=== PATIENT | male | born 1990 | race Caucasian/White ===

== ENCOUNTER 2023-12-11 09:34 | Outpatient (AMB) | payer BC, SELFPAY ==
[2023-12-11 09:40] VITALS: BP 124/74; PULSE 74; O2SAT 97; BMI 25.1
--- NOTE | 2023-12-11 09:40 | MHC.PC.OV ---
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 Now cannot pass air through L side. PMHx: Neurofibrmatosis Type I. SurgHx: L Testicular Surgery. FHx: Mom: Anxiety. Dad: HTN, HLD, DM. GM Breast CA SocHx: Nonsmoker. Socially on weekends up to 4 drinks. MJ edible each night, No other drugs HPI Comments History of Present Illness Details Documentation assistance for Rj Pal MD, was provided by Deuce Jeffers, [employer] D[employer]ing Vat Tender on 12/11/2023 10:22 AM EST. Narvaez, Dr. Pal, have read, observed, and verified documentation. FOR[facility]LY [facility] Medical History (Updated 12/11/23 @ 10:22 by Deuce Jeffers) Neurofibromatosis, type 1 Surgical History (Updated 12/11/23 @ 09:49 by Myrna Darnell CMA) History of testicular surgery Family History (Updated 12/11/23 @ 09:52 by Myrna Darnell CMA) Mother Anxiety Father High blood pressure High cholesterol Diabetes Social History (Updated 12/11/23 @ 09:56 by Myrna Darnell CMA) Household Members: Family Household Members Other:: younger brother Both parents involved: No Caregiver staying overnight: No Housing: House Are you a primary healthcare network pricing consultant to a significant other at home: No Do you presently have visiting nurse or other home services: No 75 years or older and lives alone: No Alcohol intake: current Comment: socially Patient Tobacco Use Status: Never used Tobacco e-Cigarette/Vaping Use: Never Used Agree to transfusion: Yes service: No Current occupational status: employed 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 Cognitive needs: No Hearing needs: No Vision needs: Yes (contacts, glasses) Questionnaire PHQ-9 Over the last 2 weeks, how often have you been bothered by any of the following problems? 1. Little interest or pleasure in doing things: not at all 2. Feeling down, depressed, or hopeless: not at all 3. Trouble falling or staying asleep, or sleeping too much: nearly every day 4. Feeling tired or having little energy: nearly every day 5. Poor appetite or overeating: not at all 6. Feeling bad about yourself - or that you are a failure or have let yourself or your family down: not at all 7. Trouble concentrating on things, such as reading the newspaper or watching television: not at all 8. Moving or speaking so slowly that other people could have noticed. Or the opposite - being so fidgety or restless that you have been moving around a lot more than usual: not at all 9. Thoughts that you would be better off or of hurting yourself in some way: not at all Total score: 6 Depression Screening Interpretation: Positive Depression Screening Done: Yes 99879 - PHQ-9 Billing: Yes Source: Developed by Drs. Tacho Wells, Eugenie Moffett, Larry Liu and colleagues, with an educational joshua from [email or web address]. Thrive Questionnaire Date Thrive assessed: 12/11/23 I am a: Patient What is your living situation today?: I have a steady place to live Within the past 12 months, did the food you bought not last and you didn't have the money to get more?: Never true Within the past 12 months, did you worry whether your food would run out before you got money to buy more?: Never true Do you have trouble paying for medicines?: No Do you have trouble getting transportation to medical appointments?: No Do you have trouble paying your heating and electricity bill?: No Do you have trouble taking care of your child, family member or friend?: No Do you have trouble with day-to-day activities such as bathing, preparing meals, shopping, managing finances, etc.?: No Are you currently unemployed and looking for a job?: No Are you interested in more education?: No THRIVE Score: 0 AUDIT C Alcohol Use Questionnaire (AUDIT-C) 1. How often do you have a drink containing alcohol?: 2-3 times a week 2. How many drinks containing alcohol do you have on a typical day when you are drinking?: 3 or 4 3. How often do you have six or more drinks on one occasion?: Less than monthly Total Score: 5 DAVID-7 AMB Questionnaire DAVID-7 Date DAVID - 7 assessed: 12/11/23 Feeling nervous, anxious, or on edge: 1 = Several days Not being able to stop or control worryin = Not at all Worrying too much about different things: 0 = Not at all Trouble relaxin = Nearly every day Being so restless that it is hard to sit still: 0 = Not at all Becoming easily annoyed or irritable: 1 = Several days Feeling afraid as if something awful might happen: 0 = Not at all Total DAVID-7 score (0-4 normal; 5-9 mild; 10-14 moderate; 15-21 severe): 5 Source: Developed by Drs. Tacho Wells, Eugenie Moffett, Larry Liu and colleagues, with an educational joshua from [email or web address]. DAVID-7 Assessment Billing DAVID-7 Assessment Tool: DAVID-7 Assessment 90583 Review of Systems Const Denies chills, Denies fatigue, Denies fever(s), Denies headache(s) and Denies weakness ENT Denies dizziness and Denies headache(s) Card Denies chest pain, Denies lightheadedness, Denies dyspnea and Denies other (Palpitations) Resp Denies cough, Denies dyspnea, Denies wheezing and Denies other ( shortness of breath) Musc Denies numbness and Denies tingling Neuro Denies dizziness, Denies headache(s), Denies numbness, Denies tingling, Denies paresthesias and Denies weakness Psych Denies anxiety and Denies depression Endo Denies fatigue Aller/Immun Denies wheezing Physical exam (Primary Care) Vital Signs: Last Vital Signs Pulse 74 12/11/23 09:40 BP 124/74 12/11/23 09:40 Pulse Ox 97 12/11/23 09:40 Oxygen Delivery Method Room Air 12/11/23 09:40 BMI result Body Mass Index 25.1 Tobacco/Smoking Status: Tobacco use Status Tobacco use date assessed 12/11/23 12/11/23 10:04 Patient Tobacco Use Status Never used Tobacco 12/11/23 10:04 e-Cigarette/Vaping Use Never Used 12/11/23 10:04 PHQ-9: PHQ-9 Score PHQ-9: Total score 6 12/11/23 10:04 Depression Screening Interpretation: Positive Thrive Assessment: Date of Thrive Assessment Date Thrive assessed 12/11/23 12/11/23 10:04 Const General: no acute distress and well developed Nutritional Appearance: well nourished Orientation/consciousness: patient oriented x3 HENMT Head: Yes normocephalic and Yes atraumatic Eyes General: appearance normal, both eyes and all related structures Pupils: Equal, round and reactive pupils present EOM: EOMs intact bilaterally Resp Effort & Inspection: normal respiratory effort Auscultation: clear to auscultation bilaterally Cardio Rate: regular rate Rhythm: regular rhythm Heart sounds: S1 normal heart sound present, S2 normal heart sound present, no gallops, no murmurs and no rubs Neuro General: patient oriented x3 and gait normal Cranial nerves: Yes Equal, round and reactive pupils present Psych Affect: normal affect Assessment and Plan Assessment & Plan (1) Neurofibromatosis, type 1: Code(s): Q85.01 - Neurofibromatosis, type 1 Plan: Stable Currently?has?no?neurologist?and?we?can?discuss?this?at?his?next?visit. (2) Deviated nasal septum: Code(s): J34.2 - Deviated nasal septum Plan: Deviated?nasal?septum?with?minimal?patency?of?left?Nare (3) Screening for STD (sexually transmitted disease): Code(s): Z11.3 - Encounter for screening for infections with a predominantly sexual mode of transmission Plan: Asymptomatic?Check?labs. (4) Laboratory exam ordered as part of routine general medical examination: Code(s): Z00.00 - Encounter for general adult medical examination without abnormal findings Plan: Check?lab Orders: Orders Comprehensive [place]. Panel Fast Today Z00.00 - Encounter for general adult medical examination without abnormal findings Lipid Panel Today Z00.00 - Encounter for general adult medical examination without abnormal findings Microalbumin, Random (w Creat) Today I10 - Essential (primary) hypertension UA and rflx microscopic Today Z00.00 - Encounter for general adult medical examination without abnormal findings HIV Ab/Ag Today Z11.3 - Encounter for screening for infections with a predominantly sexual mode of transmission CT NG by PCR Today Z11.3 - Encounter for screening for infections with a predominantly sexual mode of transmission TSH reflex Free T4 Today Z00.00 - Encounter for general adult medical examination without abnormal findings Syphilis Screen Today Z11.3 - Encounter for screening for infections with a predominantly sexual mode of transmission Hepatitis B,C Profile Today Z11.3 - Encounter for screening for infections with a predominantly sexual mode of transmission Referrals Ear/Nose/Throat Referral J34.2 - Deviated nasal septum Coding Level of Care Code New Pt Level 3 (63082) Diagnoses Neurofibromatosis, type 1 Q85.01 Deviated nasal septum J34.2 Screening for STD (sexually transmitted disease) Z11.3 Laboratory exam ordered as part of routine general medical examination Z00.00 Additional Codes DAVID-7 Assessment Billing - DAVID-7 Assessment Tool: DAVID-7 Assessment 52143 ([id number])
== END 2023-12-11 11:19 | disposition home or self-care (01) ==
PROVIDERS: PCP Family Medicine; Visit Provider Family Medicine
DX: Q85.01 Neurofibromatosis, type 1 (principal); J34.2 Deviated nasal septum; Z11.3 Encounter for screening for infections with a predominantly sexual mode of transmission; Z00.00 Encounter for general adult medical examination without abnormal findings
CPT/HCPCS: 99203

== ENCOUNTER 2023-12-11 10:38 | Outpatient (REF) | payer BC, SELFPAY ==
[2023-12-11 14:55] LABS: Appearance Urine Clear; Color Urine Yellow; Glucose Urine UA Negative (Negative); Leukocyte Esterase Urine Negative (Negative); Nitrite Urine Negative (Negative); PH 5.5 (5.0-9.0); Urine Blood Negative (Negative); Urine Ketones Negative (Negative); Urine Protein Negative (Neg-Trace)
[2023-12-11 17:05] LABS: Alanine Aminotransferase 94 U/L (0-40); Albumin Level 4.5 g/dL (3.5-5.0); Alkaline Phosphatase 63 U/L (39-117); Anion Gap 12 (12-20); Aspartate Amino Transferase 35 U/L (5-37); Bilirubin Total 0.8 mg/dL (0.0-1.0); Blood Urea Nitrogen 18 mg/dL (9-16); Calcium 9.5 mg/dL (8.4-10.2); Carbon Dioxide 26 mmol/L (22-29); Chloride 105 mmol/L (96-108); Cholesterol 226 mg/dL (<200); Estimated Glomerular Filt Rate > 60; Glucose Fasting 88 mg/dL (60-99); HDL Cholesterol 52 mg/dL (>40); LDL Cholesterol Calculated 141 mg/dL (<100); Potassium 3.9 mmol/L (3.3-5.1); Sodium 139 mmol/L (135-145); Total Protein 7.4 g/dL (6.5-8.0); Triglycerides 166 mg/dL (<150)
[2023-12-11 17:15] LABS: Creatinine Urine 123.07 mg/dL; Microalbum/Creatinine Ratio Ur 4.8 ug/mg cr (<30)
[2023-12-11 17:23] LABS: TSH reflex Free T4 3.75 uIU/mL (0.32-4.0)
[2023-12-12 05:04] LABS: Syphilis Screen Nonreactive (Nonreactive)
[2023-12-12 05:25] LABS: HBS Num1 4.04 mIU/mL (0-7.99); HBc Num1 0.07 S/CO (0.00-0.79); HBsAGNum1 0.54 S/CO (0.00-0.99); HIV AB/AG Nonreactive (Nonreactive); HIV Num 1 0.06 S/CO (0.00-0.99); Hepatitis B Core Antibody Nonreactive (Nonreactive); Hepatitis B Surface Antigen Negative (Negative); ~HepC Num1 0.05 S/CO (0.00-0.79); ~Hepatitis B Surface Antibody NONREACTIVE (Nonreactive); ~Hepatitis C Antibody Nonreactive (Nonreactive)
== END 2023-12-11 10:39 | disposition home or self-care (01) ==
LOC: HO.WFDLDS 10:38
PROVIDERS: Visit Provider Family Medicine
DX: Z00.00 Encounter for general adult medical examination without abnormal findings (principal); I10 Essential (primary) hypertension; Z11.3 Encounter for screening for infections with a predominantly sexual mode of transmission
CPT/HCPCS: 36415; 80053; 80061; 81003; 82043; 82570; 84443; 86704; 86706; 86780; 86803; 87340; 87389

== ENCOUNTER 2024-03-04 10:21 | Outpatient (AMB) | payer BC, SELFPAY ==
[2024-03-04 10:26] VITALS: BP 126/64; PULSE 77; RESP 15; TEMP 36.1; O2SAT 97; BMI 25.1
--- NOTE | 2024-03-04 10:26 | A.OFFPC_ITS ---
Vital Signs 03/04/24 10:26 Height 5 ft 4 in Weight 146 lb 6 oz BMI 25.1 BP 126/64 Blood Pressure Location Rt brachial Position Sitting Respiration 15 Pulse 77 Pulse Source Pulse Oximeter Temp 97 F Temp Source Temporal Artery Scan Pulse Oximetry (%) 97 Oxygen Delivery Method Room Air Intake Visit Reasons: CPE with f/u labs and health maint. Intake Note: Patient states he does not have any concerns at the moment. 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 HPI Details 34 y/o male presents for a CPE with f/u labs. Labs were drawn 12/11/23. Reviewed labs with pt. Elevated ALT of 94. Triglycerides 166. TC 226. LDL 141. HDL 52. TSH level 3.75. He notes ENT has not contacted him yet for his deviated nasal septum. PENDING SALE TO [facility] Medical History (Updated 03/04/24 @ 10:42 by Deuce Jeffers) Neurofibromatosis, type 1 Surgical History (Updated 12/11/23 @ 09:49 by Myrna Darnell CMA) History of testicular surgery Family History (Updated 12/11/23 @ 09:52 by Myrna Darnell CMA) Mother Anxiety Father High blood pressure High cholesterol Diabetes Social History (Updated 12/11/23 @ 09:56 by Myrna Darnell CMA) Household Members: Family Household Members Other:: younger brother Both parents involved: No Caregiver staying overnight: No Housing: House Are you a primary healthcare advisory services manager to a significant other at home: No Do you presently have visiting nurse or other home services: No 75 years or older and lives alone: No Alcohol intake: current Comment: socially Patient Tobacco Use Status: Never used Tobacco e-Cigarette/Vaping Use: Never Used Agree to transfusion: Yes service: No Current occupational status: employed 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 Cognitive needs: No Hearing needs: No Vision needs: Yes (contacts, glasses) Questionnaire PHQ-9 Over the last 2 weeks, how often have you been bothered by any of the following problems? 1. Little interest or pleasure in doing things: not at all 2. Feeling down, depressed, or hopeless: not at all 3. Trouble falling or staying asleep, or sleeping too much: nearly every day 4. Feeling tired or having little energy: nearly every day 5. Poor appetite or overeating: not at all 6. Feeling bad about yourself - or that you are a failure or have let yourself or your family down: not at all 7. Trouble concentrating on things, such as reading the newspaper or watching television: not at all 8. Moving or speaking so slowly that other people could have noticed. Or the opposite - being so fidgety or restless that you have been moving around a lot more than usual: not at all 9. Thoughts that you would be better off or of hurting yourself in some way: not at all Total score: 6 Depression Screening Interpretation: Positive Depression Screening Done: Yes 98903 - PHQ-9 Billing: Yes Source: Developed by Drs. Tacho Wells, Eugenie Moffett, Larry Liu and colleagues, with an educational joshua from [employer]. Thrive Questionnaire Date Thrive assessed: 03/04/24 I am a: Patient What is your living situation today?: I have a steady place to live Within the past 12 months, did the food you bought not last and you didn't have the money to get more?: Never true Within the past 12 months, did you worry whether your food would run out before you got money to buy more?: Never true Do you have trouble paying for medicines?: No Do you have trouble getting transportation to medical appointments?: No Do you have trouble paying your heating and electricity bill?: No Do you have trouble taking care of your child, family member or friend?: No Do you have trouble with day-to-day activities such as bathing, preparing meals, shopping, managing finances, etc.?: No Are you currently unemployed and looking for a job?: No Are you interested in more education?: No Please select the resources that you would like help with: None Currently or been in a relationship where the following occur: No concerns reported THRIVE Score: 0 AUDIT C Alcohol Use Questionnaire (AUDIT-C) 1. How often do you have a drink containing alcohol?: 2-4 times a month 2. How many drinks containing alcohol do you have on a typical day when you are drinking?: 1 or 2 3. How often do you have six or more drinks on one occasion?: Never Total Score: 2 DAVID-7 AMB Questionnaire DAVID-7 Date DAVID - 7 assessed: 12/11/23 Feeling nervous, anxious, or on edge: 1 = Several days Not being able to stop or control worryin = Not at all Worrying too much about different things: 0 = Not at all Trouble relaxin = Nearly every day Being so restless that it is hard to sit still: 0 = Not at all Becoming easily annoyed or irritable: 1 = Several days Feeling afraid as if something awful might happen: 0 = Not at all Total DAVID-7 score (0-4 normal; 5-9 mild; 10-14 moderate; 15-21 severe): 5 Source: Developed by Drs. Tacho Wells, Eugenie Moffett, Larry Liu and colleagues, with an educational joshua from [employer]. DAVID-7 Assessment Billing DAVID-7 Assessment Tool: DAVID-7 Assessment 07985 Review of Systems Const Denies chills, Denies fatigue, Denies fever(s), Denies headache(s) and Denies weakness Eyes Denies change in vision ENT Denies dizziness and Denies headache(s) Card Denies dyspnea Resp Denies cough, Denies dyspnea, Denies wheezing and Denies other (shortness of breath) GI Denies abdominal pain, Denies melena, Denies hematochezia, Denies change in bowel habits, Denies dyspepsia and Denies nausea Denies hematuria and Denies dysuria Musc Denies numbness and Denies tingling Skin/Breast Denies rash, Denies unusual bruising and Denies wounds Neuro Denies dizziness, Denies headache(s), Denies numbness, Denies Sensory deficit (Neuro), Denies tingling and Denies weakness Psych Denies anxiety and Denies depression Endo Denies fatigue Dayday/Lymph Denies easy bleeding and Denies easy bruising Aller/Immun Denies wheezing Physical exam (Primary Care) Vital Signs: Last Vital Signs Temp 97 F 03/04/24 10:26 Pulse 77 03/04/24 10:26 Resp 15 03/04/24 10:26 BP 126/64 03/04/24 10:26 Pulse Ox 97 03/04/24 10:26 Oxygen Delivery Method Room Air 03/04/24 10:26 BMI result Body Mass Index 25.1 Tobacco/Smoking Status: Tobacco use Status Tobacco use date assessed 03/04/24 03/04/24 10:33 Patient Tobacco Use Status Never used Tobacco 03/04/24 10:29 e-Cigarette/Vaping Use Never Used 03/04/24 10:29 PHQ-9: PHQ-9 Score PHQ-9: Total score 6 03/04/24 10:33 Depression Screening Interpretation: Positive Thrive Assessment: Date of Thrive Assessment Date Thrive assessed 03/04/24 03/04/24 10:33 Currently or been in a relationship where the following occur: No concerns reported Const General: well developed; No acute distress Nutritional Appearance: well nourished Orientation/consciousness: patient oriented x3 HENMT Head: Yes normocephalic and Yes atraumatic Ears: hearing grossly normal bilaterally and TM's normal bilaterally General nose exam: Normal external nose present and Normal nares present Mouth: Normal oral and palatal mucosa present and moist mucous membranes Teeth and gingiva: dentition normal Throat: Yes posterior oropharynx normal Eyes General: appearance normal, both eyes and all related structures Pupils: Equal, round and reactive pupils present EOM: EOMs intact bilaterally Neck Neck: Yes normal visual inspection, Yes no lymphadenopathy and Yes trachea midline Thyroid: Thyroid normal Carotids: no bruits Lymphatic: no lymphadenopathy noted Chest Chest palpation & inspection: normal inspection of the chest Resp Effort & Inspection: normal respiratory effort Auscultation: clear to auscultation bilaterally Cardio Rate: regular rate Rhythm: regular rhythm Heart sounds: S1 normal heart sound present, S2 normal heart sound present, no gallops, no murmurs and no rubs Bruits: no abdominal aortic bruits and no carotid bruits GI Palpation (GI): No Abdominal aortic bruit present, Soft to palpation, nontender, No hepatosplenomegaly present and No Rebound tenderness present Auscultation: normal bowel sounds General: Yes no CVA tenderness Back/Spine/Pelvis Back: no CVA tenderness Cervical Spine: cervical ROM normal and No Cervical spine tenderness Thoracic/Lumbar Spine: thoraco-lumbar ROM normal, No pain with thoraco-lumbar ROM, No thoracic spinal tenderness and No lumbar spinal tenderness Skin Lesions: no lesions Rashes: no rashes Trauma: no lacerations or abrasions Wounds: no wounds Nails: normal Neuro General: patient oriented x3 and gait normal Cranial nerves: Yes Equal, round and reactive pupils present Cognition (Neuro): normal cognition Gait exam (Neuro): Normal gait present Motor exam (neuro): 5/5 motor strength present throughout Sensory Exam: No Sensory deficit (Neuro) Deep tendon reflexes (DTR's): Right patellar reflex intensity grade: 2+ and Left patellar reflex intensity grade: 2+ Extrem General: Yes normal to inspection and No edema Psych Appearance: grossly normal Affect: normal affect Attitude: cooperative Thought process: Normal thought process present Assessment and Plan Assessment & Plan (1) Adult general medical exam: Code(s): Z00.00 - Encounter for general adult medical examination without abnormal findings Plan: 34-year-old?male?presents?for?complete?physical?exam (2) Neurofibromatosis, type 1: Code(s): Q85.01 - Neurofibromatosis, type 1 Plan: Stable.??Patient?does?not?have?a?neurologist?however?and?would?like?a?referral Referred?to?neurology (3) Hyperlipidemia: Code(s): E78.5 - Hyperlipidemia, unspecified Plan: TC,?LDL?cholesterol?and?triglycerides?are?high. Encouraged?a?diet?lower?in?saturated?fats?and?cholesterol Will?recheck?at?next?visit (4) Elevated liver enzymes: Code(s): R74.8 - Abnormal levels of other serum enzymes Plan: Elevated?ALT Occasionally?uses?Tylenol.??Occasionally?uses?alcohol?but?denies?any?significant ?alcohol?use. Encouraged?good?hydration Avoid?any?Tylenol?or?alcohol?prior?to?next?blood?draw If?liver?enzymes?are?the?same?or?higher,?will?check?an?ultrasound (5) Deviated nasal septum: Code(s): J34.2 - Deviated nasal septum Plan: Had?referred?patient?to?ENT?but?he?has?not?been?contacted?yet.??I?have?asked?the ?office?to?help?get?him?an?appointment (6) GERD (gastroesophageal reflux disease): Code(s): K21.9 - Gastro-esophageal reflux disease without esophagitis Plan: GERD?symptoms?about?once?a?week Trial?omeprazole If?not?improving?resolving,?will?refer?to?GI (7) Screening for STD (sexually transmitted disease): Code(s): Z11.3 - Encounter for screening for infections with a predominantly sexual mode of transmission Plan: STD/STI?panel?negative Orders: Orders Lipid Panel Today E78.5 - Hyperlipidemia, unspecified Comprehensive [place]. Panel Fast Today E78.5 - Hyperlipidemia, unspecified, Z00.00 - Encounter for general adult medical examination without abnormal findings Referrals Neurology Referral Q85.01 - Neurofibromatosis, type 1 Medications: New omeprazole 20 mg PO DAILY 30 days 30 caps 2RF Coding Level of Care Code Est Pt Level 3 (24649) Est Pt Prev Care 18-39y([id number]) Diagnoses Adult general medical exam Z00.00 Neurofibromatosis, type 1 Q85.01 Hyperlipidemia E78.5 Elevated liver enzymes R74.8 Deviated nasal septum J34.2 GERD (gastroesophageal reflux disease) K21.9 Screening for STD (sexually transmitted disease) Z11.3 Additional Codes DAVID-7 Assessment Billing - DAVID-7 Assessment Tool: DAVID-7 Assessment [id number] ([id number])
== END 2024-03-04 10:48 | disposition home or self-care (01) ==
PROVIDERS: PCP Family Medicine; Visit Provider Family Medicine
DX: Z00.00 Encounter for general adult medical examination without abnormal findings (principal); Q85.01 Neurofibromatosis, type 1; E78.5 Hyperlipidemia, unspecified; R74.8 Abnormal levels of other serum enzymes; J34.2 Deviated nasal septum; K21.9 Gastro-esophageal reflux disease without esophagitis; Z11.3 Encounter for screening for infections with a predominantly sexual mode of transmission
CPT/HCPCS: 99213; 99395

== ENCOUNTER 2024-06-04 11:08 | Outpatient (REF) | payer BC, SELFPAY ==
[2024-06-04 14:55] LABS: Alanine Aminotransferase 61 U/L (0-40); Albumin Level 4.6 g/dL (3.5-5.0); Alkaline Phosphatase 61 U/L (39-117); Anion Gap 8 (12-20); Aspartate Amino Transferase 28 U/L (5-37); Bilirubin Total 0.7 mg/dL (0.0-1.0); Blood Urea Nitrogen 14 mg/dL (9-16); Calcium 9.5 mg/dL (8.4-10.2); Carbon Dioxide 31 mmol/L (22-29); Chloride 106 mmol/L (96-108); Cholesterol 196 mg/dL (<200); Estimated Glomerular Filt Rate > 60; Glucose Fasting 98 mg/dL (60-99); HDL Cholesterol 46 mg/dL (>40); LDL Cholesterol Calculated 127 mg/dL (<100); Potassium 3.8 mmol/L (3.3-5.1); Sodium 141 mmol/L (135-145); Total Protein 7.2 g/dL (6.5-8.0); Triglycerides 116 mg/dL (<150)
== END 2024-06-04 11:09 | disposition home or self-care (01) ==
LOC: HO.WFDLDS 11:08
PROVIDERS: Visit Provider Family Medicine
DX: Z00.00 Encounter for general adult medical examination without abnormal findings (principal); E78.5 Hyperlipidemia, unspecified
CPT/HCPCS: 36415; 80053; 80061

== ENCOUNTER 2024-06-12 10:47 | Outpatient (AMB) | payer BC, SELFPAY ==
--- NOTE | 2024-06-12 11:57 | MHC.PC.OV ---
Vital Signs 06/12/24 11:58 Height 5 ft 4 in Weight 144 lb 2 oz BMI 24.7 BP 131/69 Blood Pressure Location Lt brachial Position Sitting Respiration 12 Pulse 77 Pulse Source Pulse Oximeter Temp 98.1 F Temp Source Temporal Artery Scan Pulse Oximetry (%) 98 Oxygen Delivery Method Room Air Intake Visit Reasons: f/u HLD Intake Note: F/U labs Allergies No Known Allergies [No Known Allergies*] Allergy (Verified 06/12/24 11:58) Tobacco use date assessed: 03/04/24 Dental Screening Dental Screen Date: 03/04/24 HPI f/u HLD HPI Details 34 y/o male presents to f/u HLD and elevated ALT. Had started him on omeprazole for GERD. Labs drawn 06/04/24. Reviewed labs with pt. Ongoing elevated ALT of 61 though improved from 94. AST 28. Triglycerides 116. TC 196. LDL 127. HDL 46. Had made referral to ENT for deviated septum. Notes they had contacted him but they had to reschedule. [facility] Medical History Neurofibromatosis, type 1 Surgical History History of testicular surgery Family History Mother Anxiety Father High blood pressure High cholesterol Diabetes Social History Household Members: Family Household Members Other:: younger brother Both parents involved: No Caregiver staying overnight: No Housing: House Are you a primary personal care service provider to a significant other at home: No Do you presently have visiting nurse or other home services: No 75 years or older and lives alone: No Alcohol intake: current Comment: socially Patient Tobacco Use Status: Never used Tobacco e-Cigarette/Vaping Use: Never Used Agree to transfusion: Yes service: No Current occupational status: employed 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 Cognitive needs: No Hearing needs: No Vision needs: Yes (contacts, glasses) Questionnaire PHQ-9 Over the last 2 weeks, how often have you been bothered by any of the following problems? 1. Little interest or pleasure in doing things: not at all 2. Feeling down, depressed, or hopeless: not at all 3. Trouble falling or staying asleep, or sleeping too much: nearly every day 4. Feeling tired or having little energy: more than half the days 5. Poor appetite or overeating: not at all 6. Feeling bad about yourself - or that you are a failure or have let yourself or your family down: not at all 7. Trouble concentrating on things, such as reading the newspaper or watching television: not at all 8. Moving or speaking so slowly that other people could have noticed. Or the opposite - being so fidgety or restless that you have been moving around a lot more than usual: not at all 9. Thoughts that you would be better off or of hurting yourself in some way: not at all Total score: 5 Source: Developed by Drs. Tacho Wells, Eugenie Moffett, Larry Liu and colleagues, with an educational joshua from [employer]. Thrive Questionnaire Date Thrive assessed: 06/05/24 I am a: Patient What is your living situation today?: I have a steady place to live Within the past 12 months, did the food you bought not last and you didn't have the money to get more?: Never true Within the past 12 months, did you worry whether your food would run out before you got money to buy more?: Never true Do you have trouble paying for medicines?: No Do you have trouble getting transportation to medical appointments?: No Do you have trouble paying your heating and electricity bill?: No Do you have trouble taking care of your child, family member or friend?: No Do you have trouble with day-to-day activities such as bathing, preparing meals, shopping, managing finances, etc.?: No Are you currently unemployed and looking for a job?: No Are you interested in more education?: No Please select the resources that you would like help with: None Currently or been in a relationship where the following occur: No concerns reported THRIVE Score: 0 AUDIT C Alcohol Use Questionnaire (AUDIT-C) 1. How often do you have a drink containing alcohol?: 4 or more times a week 2. How many drinks containing alcohol do you have on a typical day when you are drinking?: 5 or 6 3. How often do you have six or more drinks on one occasion?: Monthly Total Score: 8 DAVID-7 AMB Questionnaire DAVID-7 Date DAVID - 7 assessed: 12/11/23 Feeling nervous, anxious, or on edge: 0 = Not at all Not being able to stop or control worryin = Not at all Worrying too much about different things: 0 = Not at all Trouble relaxin = Not at all Being so restless that it is hard to sit still: 0 = Not at all Becoming easily annoyed or irritable: 0 = Not at all Feeling afraid as if something awful might happen: 0 = Not at all Total DAVID-7 score (0-4 normal; 5-9 mild; 10-14 moderate; 15-21 severe): 0 Source: Developed by Drs. Tacho Wells, Eugenie Moffett, Larry Liu and colleagues, with an educational joshua from [employer]. Review of Systems Const Denies chills, Denies fatigue, Denies fever(s), Denies headache(s) and Denies weakness ENT Denies dizziness and Denies headache(s) Card Denies dyspnea Resp Denies cough, Denies dyspnea, Denies wheezing and Denies other (shortness of breath) Musc Denies numbness and Denies tingling Neuro Denies dizziness, Denies headache(s), Denies numbness, Denies tingling and Denies weakness Psych Denies anxiety and Denies depression Endo Denies fatigue Aller/Immun Denies wheezing Physical exam (Primary Care) Vital Signs: Last Vital Signs Temp 98.1 F 06/12/24 11:58 Pulse 77 06/12/24 11:58 Resp 12 06/12/24 11:58 BP 131/69 06/12/24 11:58 Pulse Ox 98 06/12/24 11:58 Oxygen Delivery Method Room Air 06/12/24 11:58 BMI result Body Mass Index 24.7 Tobacco/Smoking Status: Tobacco use Status Tobacco use date assessed 03/04/24 06/12/24 12:01 Patient Tobacco Use Status Never used Tobacco 06/12/24 12:01 e-Cigarette/Vaping Use Never Used 06/12/24 12:01 PHQ-9: PHQ-9 Score PHQ-9: Total score 5 06/12/24 12:08 Thrive Assessment: Date of Thrive Assessment Date Thrive assessed 06/05/24 06/12/24 12:01 Currently or been in a relationship where the following occur: No concerns reported Const General: well developed; No acute distress Nutritional Appearance: well nourished Orientation/consciousness: patient oriented x3 HENID Head: Yes normocephalic and Yes atraumatic Eyes General: appearance normal, both eyes and all related structures Pupils: Equal, round and reactive pupils present EOM: EOMs intact bilaterally Resp Effort & Inspection: normal respiratory effort Neuro General: patient oriented x3 and gait normal Cranial nerves: Yes Equal, round and reactive pupils present Psych Affect: normal affect Coding Level of Care Code Est Pt Level 4 (58179) Diagnoses Hyperlipidemia E78.5 Elevated liver enzymes R74.8 GERD (gastroesophageal reflux disease) K21.9 Deviated nasal septum J34.2 Assessment & Plan Assessment & Plan (1) Hyperlipidemia: Code(s): E78.5 - Hyperlipidemia, unspecified Category: Medical Plan: LDL?cholesterol?still?above?goal but?improved Continue?working?at?a?diet?low?in?saturated?fats?and?cholesterol (2) Elevated liver enzymes: Code(s): R74.8 - Abnormal levels of other serum enzymes Category: Medical Plan: Liver?enzymes?are?improving Continue?working?at?weight?loss,?hydration,?Tylenol?and?alcohol?avoid Will?continue?monitoring Recheck?labs?prior?to?next?visit (3) GERD (gastroesophageal reflux disease): Code(s): K21.9 - Gastro-esophageal reflux disease without esophagitis Category: Medical Plan: Much?improved?with?omeprazole He?will?let?me?know?if?this?is?still?ongoing?problem?and?we?can?consider?referral?to?gastroenterology (4) Deviated nasal septum: Code(s): J34.2 - Deviated nasal septum Category: Medical Plan: Has?referral?to?ENT?and?working?on?getting?this?scheduled Orders: Orders Comprehensive [place]. Panel Fast Today R74.8 - Abnormal levels of other serum enzymes, Z00.00 - Encounter for general adult medical examination without abnormal findings Lipid Panel Today E78.5 - Hyperlipidemia, unspecified, Z00.00 - Encounter for general adult medical examination without abnormal findings
[2024-06-12 11:58] VITALS: BP 131/69; PULSE 77; RESP 12; TEMP 36.7; O2SAT 98; BMI 24.7
== END 2024-06-12 12:13 | disposition home or self-care (01) ==
PROVIDERS: PCP Family Medicine; Visit Provider Family Medicine
DX: E78.5 Hyperlipidemia, unspecified (principal); R74.8 Abnormal levels of other serum enzymes; K21.9 Gastro-esophageal reflux disease without esophagitis; J34.2 Deviated nasal septum

== ENCOUNTER → 2024-06-12 10:47 | Outpatient (BNVA) | payer BC, SELFPAY | PROVIDERS: PCP Family Medicine; Visit Provider Family Medicine ==

== ENCOUNTER 2024-08-17 10:49 | Outpatient (AMB) | payer BC, SELFPAY ==
--- NOTE | 2024-08-17 10:52 | MHC.OFFVIS ---
Vital Signs 08/17/24 10:54 Height 5 ft 4 in Weight 150 lb BMI 25.7 BP 118/82 Blood Pressure Location Rt brachial Position Sitting Intake Visit Reasons: INP: Neurofibromatosis Intake Note: Patient presents for neurofibromatosis Allergies No Known Allergies [No Known Allergies*] Allergy (Verified 08/17/24 10:55) HPI Comments Details: 34y/o Right handed male with Neurofibromatosis type 1 diagnosed at age 4 comes for further management . He had cafe au lait spots at which led to the diagnosis. No other complications. He was followed up at [facility] neurology until 6 years ago and lost follow up. He denies frequent headaches, double vision, vision loss, weakness numbness, dizziness, dysarthria , dysphagia etc.Denies any learning issues. He denies any back or neck problems or gait issues. No family history of NF1. He had a normal developmental history . He has 2 siblings with neurological problems. He reports trouble falling asleep. [facility] Medical History Neurofibromatosis, type 1 (von Recklinghausen's disease) Neurofibromatosis, type 1 Surgical History History of testicular surgery Family History Mother Anxiety Father High blood pressure High cholesterol Diabetes Social History Household Members: Family Household Members Other:: younger brother Both parents involved: No Caregiver staying overnight: No Housing: House Are you a primary manager respiratory care to a significant other at home: No Do you presently have visiting nurse or other home services: No 75 years or older and lives alone: No Alcohol intake: current Comment: socially Patient Tobacco Use Status: Never used Tobacco e-Cigarette/Vaping Use: Never Used Agree to transfusion: Yes service: No Current occupational status: employed 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 Cognitive needs: No Hearing needs: No Vision needs: Yes (contacts, glasses) Physical Exam Vital Signs: Last Vital Signs BP 118/82 08/17/24 10:54 BMI result Body Mass Index 25.7 Const Other: Mallampatti grade 4 General: cooperative, healthy appearing, comfortable and anxious Nutritional Appearance: average body habitus Orientation/consciousness: patient oriented x3 Eyes Pupils: Equal, round and reactive pupils present Neuro Other: mild head tremors General: patient oriented x3, gait normal, tone normal, moves all extremities and no focal motor deficits Cranial nerves: Yes Equal, round and reactive pupils present, Yes Bilaterally intact EOM present, Yes Nystagmus not present, Yes Normal facial strength present, Yes Midline tongue present and Yes Symmetric palate elevation present Cognition (Neuro): normal cognition Gait exam (Neuro): Normal gait present Deep tendon reflexes (DTR's): Right triceps reflex intensity grade: 2+, Left triceps reflex intensity grade: 2+, Rt Biceps (C5, C6): 2+, Left biceps reflex intensity grade: 2+, Right brachioradialis reflex intensity grade: 2+, Left brachioradialis reflex intensity grade: 2+, Right patellar reflex intensity grade: 2+ and Left patellar reflex intensity grade: 2+ Coordination: [id number] test normal Assessment & Plan Assessment & Plan (1) Neurofibromatosis, type 1 (von Recklinghausen's disease): Code(s): Q85.01 - Neurofibromatosis, type 1 Category: Medical Plan MRI Brain and L spine F/u ophthalmology reports form [facility] for review. Orders: Orders MR head/brain wo/w con Today Q85.01 - Neurofibromatosis, type 1 MR lumbar spine wo/w con Today Q85.01 - Neurofibromatosis, type 1 Coding Level of Care Code New Pt Level 4 (28827) Complex EM visit Add On G2211 Diagnoses Neurofibromatosis, type 1 (von Recklinghausen's disease) Q85.01
[2024-08-17 10:54] VITALS: BP 118/82; BMI 25.7
== END 2024-08-17 11:25 | disposition home or self-care (01) ==
PROVIDERS: PCP Family Medicine; Visit Provider Psychiatry & Neurology Neurology
DX: Q85.01 Neurofibromatosis, type 1 (principal)
CPT/HCPCS: 99204

== ENCOUNTER 2024-09-19 15:47 | Outpatient (REF) | payer BC, SELFPAY ==
--- NOTE | ~2024-09-19 | MR_ITS ---
EXAMINATION: MR BRAIN WITHOUT AND WITH CONTRAST CLINICAL INFORMATION: Neurofibromatosis type I COMPARISON: None available. TECHNIQUE: Multiplanar, multisequence MRI of the brain was obtained before and after the intravenous administration of 6.5 mL gadolinium based (Gadavist) without reported immediate complications. FINDINGS: No restricted diffusion. No acute intracranial hemorrhage, mass effect, midline shift, hydrocephalus or herniation. Posterior cranial fossa contents demonstrated no acute intracranial hemorrhage or mass effect. No gross signal abnormality or enhancing lesion within the intraconal, intracanalicular or prechiasmatic/cisternal segments of the optic nerves. No intra-axial or extra-axial enhancing lesion and or mass. Deng-white matter differentiation is normal. Flow-void signal within the main cerebral vessels is normal. Sellar/suprasellar region is normal. Craniocervical junction is intact and normal. Volume loss/incomplete aeration right maxillary sinus. MR/MR head/brain wo/w con IMPRESSION: No acute or structural brain abnormality. No enhancing mass. The exam was not designed to evaluate the orbits, there are less no gross optic nerve glioma. Electronically signed by: Gómez Chacon MD 09/21/2024 10:25 AM RITO
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
--- OUTSIDE RECORDS SUMMARY | 2024-09-19 15:51 | XMS_ITS | Encounter Summary ---
Author Organization [facility] Address [address] [place] [address] Phone Care Team Providers Care Apprenticeship Training Representative Name Role Phone Tacho Spears Primary Care Provider Encounter Details Date Type Department Care Team (Late st Contact Info) Description 04/04/2017 Conversion Encounter [facility] [address] [place] [address] Social History Tobacco Use Types Packs/Day Years Used Date Smoking Tobacco: Never Assessed Sex and Gender Information Value Date Recorded Sex Assigned at Not on file Legal Sex Male 4:40 PM EDT Gender Identity Not on file Sexual Orientation Not on file documented as of this encounter Plan of Treatment Not on file documented as of this encounter Visit Diagnoses Not on filedocumented in this encounter Care Teams Apprenticeship Training Representative Relationship Specialty Start Date End Date Tacho Spears [address] [place] [address] PCP - General 03/29/17 documented as of this encounter
--- OUTSIDE RECORDS SUMMARY | 2024-09-19 15:51 | XMS_ITS | Encounter Summary ---
Author Organization [facility] Address [address] [place] [address] Phone Care Team Providers Care Button Tufter Name Role Phone Tacho Spears Primary Care Provider [phone] Encounter Details Date Type Department Care Team (Late st Contact Info) Description 12/19/2011 Documentation EM Family Medicine [address] [place] [address] Family Medicine, Physician [address] [place], [place] [phone] Social History Tobacco Use Types Packs/Day Years [...] on filedocumented in this encounter Care Teams Button Tufter Relationship Specialty Start Date End Date Tacho Spears [address] [place] [id number] PCP - General 03/29/17 documented as of this encounter
--- OUTSIDE RECORDS SUMMARY | 2024-09-19 15:51 | XMS_ITS | Encounter Summary ---
Author Organization [facility] Address [address] [place] [address] Phone Care Team Providers Care Dewaterer Operator Name Role Phone Tacho Spears Primary Care Provider [phone] Encounter Details Date Type Department Care Team (Late st Contact Info) Description 03/16/2011 Documentation EM Family Medicine [address] [place] [address] Family Medicine, Physician [address] [place], [place] [phone] Social History Tobacco Use Types Packs/Day Years [...] on filedocumented in this encounter Care Teams Dewaterer Operator Relationship Specialty Start Date End Date Tacho Spears [address] [place] [id number] PCP - General 03/29/17 documented as of this encounter
--- OUTSIDE RECORDS SUMMARY | 2024-09-19 15:51 | XMS_ITS | Encounter Summary ---
Author Organization [facility] Address [address] [place] [address] Phone Care Team Providers Care Vice President Of Operations Name Role Phone Tacho Spears Primary Care Provider [phone] Encounter Details Date Type Department Care Team (Late st Contact Info) Description 01/06/2010 Documentation EM Family Medicine [address] [place] [address] Family Medicine, Physician [address] [place], [place] [phone] Social History Tobacco Use Types Packs/Day Years [...] on filedocumented in this encounter Care Teams Vice President Of Operations Relationship Specialty Start Date End Date Tacho Spears [address] [place] [address] PCP - General 03/29/17 documented as of this encounter
--- OUTSIDE RECORDS SUMMARY | 2024-09-19 15:51 | XMS_ITS | Encounter Summary ---
Author Organization [facility] Address [address] [place] [address] Phone Care Team Providers Care Mannequin Molder Name Role Phone Tacho Spears Primary Care Provider [phone] Encounter Details Date Type Department Care Team (Late st Contact Info) Description 02/14/2010 Documentation EM Family Medicine [address] [place] [address] Family Medicine, Physician [address] [place], [place] [phone] Social History Tobacco Use Types Packs/Day Years [...] on filedocumented in this encounter Care Teams Mannequin Molder Relationship Specialty Start Date End Date Tacho Spears [address] [place] [id number] PCP - General 03/29/17 documented as of this encounter
--- OUTSIDE RECORDS SUMMARY | 2024-09-19 15:51 | XMS_ITS | Encounter Summary ---
Author Organization [facility] Address [address] [place] [address] Phone Care Team Providers Care Dental Equipment Repairer Name Role Phone Tacho Spears Primary Care Provider [phone] Encounter Details Date Type Department Care Team (Late st Contact Info) Description 02/14/2010 Documentation EM Family Medicine [address] [place] [address] Family Medicine, Physician [address] [place], [place] [phone] Social History Tobacco Use Types Packs/Day Years [...] on filedocumented in this encounter Care Teams Dental Equipment Repairer Relationship Specialty Start Date End Date Tacho Spears [address] [place] [phone] PCP - General 03/29/17 documented as of this encounter
--- OUTSIDE RECORDS SUMMARY | 2024-09-19 15:51 | XMS_ITS | Encounter Summary ---
Author Organization [facility] Address [address] [place] [address] Phone Care Team Providers Care Gas Appliance Adjuster Name Role Phone Tacho Spears Primary Care Provider [phone] Encounter Details Date Type Department Care Team (Late st Contact Info) Description 08/21/2010 Documentation EM Family Medicine [address] [place] [address] Family Medicine, Physician [address] [place], [place] [phone] Social History Tobacco Use Types Packs/Day Years [...] on filedocumented in this encounter Care Teams Gas Appliance Adjuster Relationship Specialty Start Date End Date Tacho Spears [address] [place] [id number] PCP - General 03/29/17 documented as of this encounter
[2024-09-19] MEDS: gadobutroL 7.5 ML VIAL IVPUSH (17:20)
== END 2024-09-19 15:48 | disposition home or self-care (01) ==
LOC: HO.MRI 15:47
PROVIDERS: PCP Family Medicine; Visit Provider Psychiatry & Neurology Neurology
DX: Q85.01 Neurofibromatosis, type 1 (principal)
CPT/HCPCS: 70553; 72158; A9585

== ENCOUNTER → 2024-09-19 15:58 | Outpatient (BNV) | payer BC, SELFPAY | PROVIDERS: PCP Family Medicine; Visit Provider Radiology Diagnostic Radiology | DX: Q85.01 Neurofibromatosis, type 1 (principal); M40.56 Lordosis, unspecified, lumbar region | CPT/HCPCS: 70553; 72158 ==

== ENCOUNTER 2025-02-08 10:52 | Outpatient (AMB) | payer BC, SELFPAY ==
--- NOTE | 2025-02-08 10:54 | A.OFFVIS_ITS ---
Vital Signs 02/08/25 10:55 Height 5 ft 4 in Weight 143 lb BMI 24.5 BP 136/82 Blood Pressure Location Rt brachial Position Sitting Intake Visit Reasons: 6 mnts f/u appt Intake Note: Patient presents for follow up MRI brain/lumbar 09/19/24. No reports found at [facility] Allergies No Known Allergies (No Known Allergies*) Allergy (Verified 08/17/24 10:55) HPI Comments Details: 35y/o Right handed male with Neurofibromatosis type 1 diagnosed at age 4 comes for follow up. MRI Brain and LS spine were normal . He saw ophthalmology recently - exam was normal . He had cafe au lait spots at which led to the diagnosis. No other complications. He denies frequent headaches, double vision, vision loss, weakness numbness, dizziness, dysarthria , dysphagia etc.Denies any learning issues. He denies any back or neck problems or gait issues. No family history of NF1. He had a normal developmental history . He has 2 siblings with neurological problems. He reports trouble falling asleep. [facility] Medical History Neurofibromatosis, type 1 (von Recklinghausen's disease) Neurofibromatosis, type 1 Surgical History History of testicular surgery Family History Mother Anxiety Father High blood pressure High cholesterol Diabetes Social History Household Members: Family Household Members Other:: younger brother Both parents involved: No Caregiver staying overnight: No Housing: House Are you a primary personal care service provider to a significant other at home: No Do you presently have visiting nurse or other home services: No 75 years or older and lives alone: No Alcohol intake: current Comment: socially Patient Tobacco Use Status: Never used Tobacco e-Cigarette/Vaping Use: Never Used Agree to transfusion: Yes service: No Current occupational status: employed 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 Cognitive needs: No Hearing needs: No Vision needs: Yes (contacts, glasses) Physical Exam Vital Signs: Last Vital Signs BP 136/82 02/08/25 10:55 BMI result Body Mass Index 24.5 Const Other: Mallampatti grade 4 General: cooperative, healthy appearing, comfortable and anxious Nutritional Appearance: average body habitus Orientation/consciousness: patient oriented x3 Eyes Pupils: Equal, round and reactive pupils present Neuro Other: mild head tremors General: patient oriented x3, gait normal, tone normal, moves all extremities and no focal motor deficits Cranial nerves: Yes Equal, round and reactive pupils present, Yes Bilaterally intact EOM present, Yes Nystagmus not present, Yes Normal facial strength present, Yes Midline tongue present and Yes Symmetric palate elevation present Cognition (Neuro): normal cognition Gait exam (Neuro): Normal gait present Coordination: [id number] test normal Assessment & Plan Assessment & Plan (1) Neurofibromatosis, type 1 (von Recklinghausen's disease): Code(s): Q85.01 - Neurofibromatosis, type 1 Category: Medical Plan MRI Brain and L spine reviewed F/u ophthalmology - notes form [facility] reports form [facility] for review. Coding Level of Care Code Est Pt Level 4 (65128) Diagnoses Neurofibromatosis, type 1 (von Recklinghausen's disease) Q85.01
[2025-02-08 10:55] VITALS: BP 136/82; BMI 24.5
--- OUTSIDE RECORDS SUMMARY | 2025-02-08 12:20 | XMS_ITS | Clinical Summary ---
Author Organization [facility] Address [address] [place] [address] Phone Care Team Providers Care Litigation Support Analyst Name Role Phone Tacho Spears Primary Care Provider [phone] Immunizations Immunization Administration Dates Next Due DTP 02/01/1997, 3,1992,06/15,1992 Hep B, ped/adol 12/18/1994,1992,1992 Hib (PRP-T) 05/11/1993, 3,1992,05/02 MMR 02/01/1997,05/11/1993 Meningococcal Conj (Menactra) MCV4P 01/16/2007 OPV 02/01/1997, 3,1992,05/02 Td (adult) (MBL), 2 Lf tetan us toxoid, PF, adsorbed 12/02/2003 Tdap 01/24/2006 Family History Relation Name Status Comments Brother Alive Brother: Alive and well Father Alive Father: Hyperte nsion Mother Alive Mother: Alive a nd well Sister Alive Sister: Alive a nd well Social History Tobacco Use Types Packs/Day Years Used Date Smoking Tobacco: Never Assessed Sex and Gender Information Value Date Recorded Sex Assigned at Not on file Legal Sex Male 4:40 PM EDT Gender Identity Not on file Sexual Orientation Not on file Last Filed Vital Signs Vital Sign Reading Time Taken Comments Blood Pressure 108/60 02/14/2010 12:00 AM EDT Pulse - - Temperature - - Respiratory Rate - - Oxygen Saturation - - Inhaled Oxygen Concentration - - Weight 53.1 kg (117 lb) 02/14/2010 12:00 AM EDT Height 159.5 cm (5' 2.8 ) 02/14/2010 12:00 AM ED T Body Mass Index 20.86 02/14/2010 12:00 AM EDT Plan of Treatment Health Maintenance Due Date Last Done Comments Varicella Vaccines (1 of 2 - 13+ 2-dose series) 02/08/2005 DTaP,Tdap,and Td Vaccines (7 - Td or Tdap) 01/25/2016 01/24/2006, 12/02/2003, 02/01/1997, Additional history exists Influenza Vaccines (#1) 2024 COVID-19 Vaccine ( - 2023- season) 2024 HIB Vaccines Completed 05/11/1993, 08/20, 1992, Additional history exists Hepatitis B Vaccines Completed 12/18/1994, 1992, 1992 IPV Vaccines Completed 02/01/1997, 07/20, 1992, Additional history exists MMR Vaccines Completed 02/01/1997, 05/11/1993 Meningococcal Vaccine Aged Out 01/16/2007 No mauricio andre eligible based on patient's age to complete this topic HPV Vaccines Aged Out No longer eligi ble based on patient's age to complete this topic Hepatitis A Vaccines Aged Out No long er eligible based on patient's age to complete this topic Men B Vaccine Aged Out No longer elig ible based on patient's age to complete this topic Pneumococcal Vaccine Aged Out No long er eligible based on patient's age to complete this topic Care Teams Litigation Support Analyst Relationship Specialty Start Date End Date Tacho [address] [place] [address] PCP - General 03/29/17
== END 2025-02-08 11:36 | disposition home or self-care (01) ==
LOC: HO.HSMS 10:53
PROVIDERS: PCP Family Medicine; Visit Provider Psychiatry & Neurology Neurology
DX: Q85.01 Neurofibromatosis, type 1 (principal)
CPT/HCPCS: 99214